=== PATIENT | male | born 1955 | race Caucasian/White ===

== ENCOUNTER 2016-03-30 14:53 | Emergency (ER) | payer OTHER ==
[2016-03-30 15:03] VITALS: BP 163/97; PULSE 92; TEMP 98.4; BMI 26.4
[2016-03-30] MEDS ORDERED: IBUPROFEN 600 MG TABLET (FP) PO ONE ×2 (15:31→15:33)
--- NOTE | 2016-03-30 15:32 | PDOC ---
History of Present Illness - General Chief Complaint: Injury Stated Complaint: SLIP/FALL, LEGS SWELLING Time Seen by Provider: 03/30/16 15:13 History Source: Patient Exam Limitations: No Limitations - History of Present Illness Initial Comments: 03/30/16 15:51 Chief complaint: Fall complaining of pain to right hand and bilateral knees History of present illness: Patient is a 61-year-old male with a history of insulin-dependent diabetes, hyperlipidemia and hypertension here today due to a fall. Patient reports that his had started to blow away and he grabbed it and fell breaking his fall with bilateral palms and knees. Patient denies any head injury. Patient is complaining of pain to his right palm R proximal thumb that is currently a 4 out of 10 and aching in nature. Patient denies any limitation of range of motion of right arm or hand or wrist or digits. Patient also has a superficial abrasion to right palm. Patient denies any pain of left palm. Patient complaining of pain to bilateral knees right being worse 8 when just sitting in 10 when walking and left knee is a 6 out of 10 when bending or walking. Patient has a superficial abrasion to his right knee. Patient has slight swelling noted to bilateral medial knees. Patient denies any numbness of his legs or any other issues. Patient is up-to-date with tetanus last had 2 years ago. Occurred: reports: just prior to arrival Severity: reports: mild (rt. hand proximal thumb ), moderate (left knee ), severe (right knee, ) Pain Location: reports: lower extremity (b/l knee pain, abrasion rt. knee, rt. palm ), upper extremity (rt/ hand proximal palmar thumb ) Method of Injury: Yes: fall Modifying Factors: improves with: None Loss of Consciousness: no loss of consciousness Associated Symptoms (Fall): trouble walking (limping slightly on rt. ) Past History - Past Medical History Allergies/Adverse Reactions: Allergies Allergy/AdvReac Type Severity Reaction Status Date / Time No Known Drug Allergies Allergy Verified 03/30/16 15:16 Home Medications: Ambulatory Orders Insulin Glargine,Hum.rec.anlog [Lantus (10mL VIAL) -] 12 units SQ AM 06/19/13 Enalapril Maleate [Vasotec] 10 mg PO DAILY 11/05/14 Insulin Lispro [Humalog] 12 unit SQ ASDIR 11/05/14 Glipizide 5 mg PO DAILY 07/07/15 Metformin HCl [Glucophage] 500 mg PO BID 07/07/15 Diabetes: Yes GI Disorders: Yes HTN: Yes Hypercholesterolemia: Yes Suicide Attempt (Hx): No - Surgical History Abdominal Surgery: Yes ("TWISTED INTESTINES") Appendectomy: Yes - Immunization History Td Vaccination: Yes Immunization Up to Date: Yes - Psycho/Social/Smoking Cessation Hx Anxiety: No Suicidal Ideation: No Smoking Status: No Smoking History: Never smoked Have you smoked in the past 12 months: No Number of Cigarettes Smoked Daily: 0 Information on smoking cessation initiated: No Hx Alcohol Use: No Drug/Substance Use Hx: No Substance Use Type: None Hx Substance Use Treatment: No Review of Systems - Review of Systems Able to Perform ROS?: Yes Constitutional: No: Symptoms Reported HEENTM: No: Symptoms Reported Respiratory: No: Symptoms reported Cardiac (ROS): No: Symptoms Reported ABD/GI: No: Symptoms Reported Musculoskeletal: Yes: Joint Pain (b/l knees , rt. proximal palmar thumb ), Joint Swelling (b/l knees medial aspect edema rt. greater than left ) Integumentary: Yes: Other (2 pea size abrasion rt. palm, rt. anterior knee quarter size superfical abrasion) Neurological: No: Symptoms reported *Physical Exam - Vital Signs Last Vital Signs Temp Pulse Resp BP Pulse Ox 98.4 F 92 H 18 163/97 100 03/30/16 15:01 03/30/16 15:01 03/30/16 15:01 03/30/16 15:01 03/30/16 15:01 - Physical Exam General Appearance: Yes: Appropriately Dressed Neck: negative: Tender, Lymphadenopathy (R), Lymphadenopathy (L), Rigidity, Tender lateral, Tender midline Respiratory/Chest: positive: Lungs Clear, Normal Breath Sounds. negative: Chest Tender, Respiratory Distress Cardiovascular: positive: Regular Rhythm, Regular Rate, S1, S2 Musculoskeletal: positive: Normal Inspection. negative: CVA Tenderness, CVA Tenderness (R), CVA Tenderness (L), Decreased Range of Motion, Muscle Spasm, Vertebral Tenderness Extremity: positive: Normal Capillary Refill, Normal Range of Motion (b/l knees , b/l wrist, hand and all digits b/l hands ), Tender (rt. b/l knees, rt.palmar proximal thumb ), Other (negative anterior posterior drawer b/l knee ) Integumentary: positive: Other (2pea size superifical abrasions rt. palm, rt. anterior knee superficial abrasion. ) Neurologic: positive: Alert, Normal Response, Motor Strength 5/5 (b/l arms and legs), Respond to painful stimul, Responsive. negative: Numbness, Sensory Deficit Procedures - Consent Consent obtained: From Patient - Splinting Splint Location: Right: Knee Favio Bandage: 6" Complications: No Progress: 03/30/16 18:20 - Additional Procedures Progress: 03/30/16 15:56 cleansed right hand abrasion which is 2 pea-sized area is noted with Betadine and normal saline 0.9% no foreign body noted area dried bacitracin applied with Band-Aid Cleanse abrasion to her right knee that is quarter size superficial with Betadine and normal saline 0.9% no foreign body noted area dried bacitracin applied with bandage Medical Decision Making - Medical Decision Making 03/30/16 15:54 Patient is a 61-year-old male with a history of insulin-dependent diabetes, hyperlipidemia and hypertension here today due to a fall. Patient reports that his had started to blow away and he grabbed it and fell breaking his fall with bilateral palms and knees. Patient denies any head injury. Patient is complaining of pain to his right palm R proximal thumb that is currently a 4 out of 10 and aching in nature. Patient denies any limitation of range of motion of right arm or hand or wrist or digits. Patient also has a superficial abrasion to right palm. Patient denies any pain of left palm. Patient complaining of pain to bilateral knees right being worse 8 when just sitting in 10 when walking and left knee is a 6 out of 10 when bending or walking. Patient has a superficial abrasion to his right knee. Patient has slight swelling noted to bilateral medial knees. Patient denies any numbness of his legs or any other issues. Patient is up-to-date with tetanus last had 2 years ago. With no head injury Right hand pain palmar aspect over her proximal thumb rule out fracture Abrasion to right palm Bilateral knee pain rule out fracture Abrasion to right knee Plan: X-ray bilateral knees No abnormality no fracture or dislocation noted per Dr. Rainey X-ray right hand no fracture noted mild arthritic changes noted Dr. Rainey Favio wrap 6 inch rt. knee Ibuprofen 600 mg by mouth now Rations to right hand and right knee cleanse with Betadine and normal saline no foreign bodies noted irrigated with normal saline 0.9% dried and small amount of bacitracin applied with band Follow Up with orthopedist for further evaluation 03/30/16 15:56 03/30/16 16:22 03/30/16 18:20 *DC/Admit/Observation/Transfer Diagnosis at time of Disposition: Abrasion Fall Qualifiers: Encounter type: initial encounter Qualified Code(s): W19.XXXA - Unspecified fall, initial encounter Contusion, knee Qualifiers: Encounter type: initial encounter Laterality: unspecified laterality Qualified Code(s): S80.00XA - Contusion of unspecified knee, initial encounter Contusion of hand, right Qualifiers: Encounter type: initial encounter Qualified Code(s): S60.221A - Contusion of right hand, initial encounter - Discharge Dispostion Disposition: HOME Condition at time of disposition: Stable - Referrals Referrals: Mookie Eli MD [Primary Care Provider] - Bobby Puente MD [Staff Physician] - - Patient Instructions Additional Instructions: Cleanse abrasions with antibacterial soap and water twice daily pat dry and apply bacitracin ointment and cover with Band-Aid when out a house let air out at night Elevate both legs and apply ice every one to 2 hours for 15 minutes each time while awake today and tomorrow Follow-up with orthopedist if pain continues and knees Return to emergency room if any redness around abrasions or discharge from abrasions or any fever Patient voiced understanding of discharge instructions and all questions were answered
[2016-03-30] MEDS ORDERED: BACITRACIN 30 GM TUBE TOPICAL OINTMENT ONE (15:33)
== END 2016-03-30 16:33 | disposition home or self-care (01) ==
LOC: JERFT 14:53
DX: S60.221A Contusion of right hand, initial encounter (principal); S80.02XA Contusion of left knee, initial encounter; S80.01XA Contusion of right knee, initial encounter; S60.511A Abrasion of right hand, initial encounter; S80.211A Abrasion, right knee, initial encounter; W18.39XA Other fall on same level, initial encounter; Y93.89 Activity, other specified; Y92.89 Other specified places as the place of occurrence of the external cause; I10 Essential (primary) hypertension; E11.9 Type 2 diabetes mellitus without complications; Z79.84 Long term (current) use of oral hypoglycemic drugs; Z79.4 Long term (current) use of insulin; E78.00 Pure hypercholesterolemia, unspecified
CPT/HCPCS: 73130-TC-RT; 73562-TC-LT; 73562-TC-RT; 99281-25

== ENCOUNTER 2017-07-23 15:56 | Emergency (ER) | payer OTHER ==
[2017-07-23 16:01] VITALS: BMI 32.8
--- NOTE | 2017-07-23 16:05 | PDOC ---
Rapid Medical Evaluation Time Seen by Provider: 07/23/17 15:56 Medical Evaluation: Allergies Allergy/AdvReac Type Severity Reaction Status Date / Time No Known Drug Allergies Allergy Verified 07/23/17 15:58 07/23/17 16:00 I have performed a brief in-person evaluation of this patient. The patient presents with a chief complaint of: CP. H/o HLD, HTN, DM, s/p neg stress test 3 years ago. States due for stress test on Wednesday given ongoing CP x several weeks. Pain worse today Pertinent physical exam findings: appears uncomfortable at triage, chest/lungs clear I have ordered the following:ekg/cxr/labs The patient will proceed to the ED for further evaluation. Discharge Disposition - Diagnosis Chest pain Qualifiers: Chest pain type: unspecified Qualified Code(s): R07.9 - Chest pain, unspecified - Referrals - Patient Instructions - Post Discharge Activity
[2017-07-23] MEDS: NITROGLYCERIN SUBLINGUAL 1/150 0.4 MG TAB SL PRN ×2 (16:29→17:36)
[2017-07-23 16:45] LABS: BASO % 1.2 % (0-2.0); EOS % 4.3 % (0-4.5); HEMATOCRIT 47.5 % (35.4-49); HEMOGLOBIN 15.3 GM/dL (11.7-16.9); MCHC 32.2 g/dl (32.0-35.9); MEAN CELL VOLUME 80.6 fl (80-96); MEAN PLT VOLUME 8.2 fl (7.5-11.1); MONO % 12.4 % (3.8-10.2); NEUT % 64.1 % (42.8-82.8); PLATELET COUNT 250 K/MM3 (134-434); RBC 5.89 M/mm3 (4.00-5.60); WHITE BLOOD COUNT 10.2 K/mm3 (4.0-10.0)
--- NOTE | 2017-07-23 17:06 | PDOC ---
History of Present Illness - General Chief Complaint: Chest Pain Stated Complaint: CHEST PAIN Time Seen by Provider: 07/23/17 15:56 - History of Present Illness Initial Comments: 07/23/17 17:00 "The patient is a 62 year old male with past medical history of HLD, HTN, DM, presents to the emergency department complaining of chest pain and headache for the past 2 wks. The patient reports that his pain started as midsternal/ epigastric burning sensation 2 weeks ago. It was initially intermittent, aggravated by walking. The pain radiates from his chest to his L shoulder. He also reports gradually worsening headache. Denies thunderclap. Denies neck pain. Denies N/V. Denies F/C. The patient reports his chest pain worsened this morning when the pain became constant, with no relief with Motrin. The patient went to [facility] earlier this week for chest pain, where he had bloodwork and a chest X-ray done that were reportedly normal. Pt denies any family history of cardiac disorder. Denies pain with deep breathing. Denies sob or wheezing. Denies fever, chills, cough or vertigo. Denies abdominal pain or back pain. Denies any numbness, tingling or loss of sensation. Denies vertigo or dizziness. Denies leg swelling or calf pain. Allergies: NKDA Surgical history: Abd surg: Appendectomy Social history: History of smoking. Social use of alcohol. Denies the use of recreational drugs. PCP: Mookie Eli MD " Past History - Past Medical History Allergies/Adverse Reactions: Allergies Allergy/AdvReac Type Severity Reaction Status Date / Time No Known Drug Allergies Allergy Verified 07/23/17 15:58 Home Medications: Ambulatory Orders Insulin Glargine,Hum.rec.anlog [Lantus (10mL VIAL) -] 14 units SQ BID 06/19/13 Enalapril Maleate [Vasotec] 10 mg PO DAILY 11/05/14 Insulin Lispro [Humalog] 12 unit SQ BID 11/05/14 Glipizide 5 mg PO DAILY 07/07/15 Metformin HCl [Glucophage] 500 mg PO AM 07/07/15 Pantoprazole Sodium [Protonix -] 40 mg PO DAILY 07/23/17 Pravastatin Sodium 10 mg PO HS 07/23/17 metFORMIN HCL [Metformin HCl] 1,000 mg PO HS 07/23/17 COPD: No Diabetes: Yes GI Disorders: Yes HTN: Yes Hypercholesterolemia: Yes - Surgical History Abdominal Surgery: Yes ("TWISTED INTESTINES") Appendectomy: Yes - Immunization History Td Vaccination: Yes Immunization Up to Date: Yes - Suicide/Smoking/Psychosocial Hx Smoking Status: No Smoking History: Never smoked Have you smoked in the past 12 months: No Number of Cigarettes Smoked Daily: 0 Hx Alcohol Use: No Drug/Substance Use Hx: No Substance Use Type: None Hx Substance Use Treatment: No Review of Systems - Review of Systems Comments:: 07/23/17 17:04 "GENERAL/CONSTITUTIONAL: No fever or chills. No weakness. HEAD, EYES, EARS, NOSE AND THROAT: No change in vision. No ear pain or discharge. No sore throat. CARDIOVASCULAR: (+) chest pain No shortness of breath. RESPIRATORY: No cough, wheezing, or hemoptysis. GASTROINTESTINAL: No nausea, vomiting, diarrhea or constipation. GENITOURINARY: No dysuria, frequency, or change in urination. MUSCULOSKELETAL: No joint or muscle swelling or pain. No neck or back pain. SKIN: No rash NEUROLOGIC: (+) headache, vertigo, loss of consciousness, or change in strength/ sensation. ENDOCRINE: No increased thirst. No abnormal weight change. HEMATOLOGIC/LYMPHATIC: No anemia, easy bleeding, or history of blood clots. ALLERGIC/IMMUNOLOGIC: No hives or skin allergy. " *Physical Exam - Vital Signs Last Vital Signs Temp Pulse Resp BP Pulse Ox 98.3 F 81 18 135/83 100 07/23/17 21:53 07/23/17 21:53 07/23/17 21:53 07/23/17 21:53 07/23/17 19:30 - Physical Exam Comments: 07/23/17 17:04 "GENERAL: Awake, alert, and fully oriented, in no acute distress. HEAD: No signs of trauma EYES: PERRLA, EOMI, sclera anicteric, conjunctiva clear ENT: Auricles normal inspection, hearing grossly normal, nares patent, oropharynx clear without exudates. Moist mucosa NECK: Nontender, no stepoffs, Normal ROM, supple, no lymphadenopathy, JVD, or masses LUNGS: Breath sounds equal, clear to auscultation bilaterally. No wheezes, and no crackles HEART: Regular rate and rhythm, normal S1 and S2, no murmurs, rubs or gallops ABDOMEN: Soft, nontender, normoactive bowel sounds. No guarding, no rebound. No masses EXTREMITIES: Normal range of motion, no edema. No clubbing or cyanosis. No cords, erythema, or tenderness NEUROLOGICAL: Cranial nerves II through XII intact. 5/5 strength and sensation in all extremities, Normal speech, normal gait, normal cerebellar function SKIN: Warm, Dry, normal turgor, no rashes or lesions noted. " Heart Score/ECG Review - History History: Moderately suspicious - Electrocardiogram EKG: Non specific repolarization disturbance - Age Age: 45-65 - Risk Factors Risk Factors Heart Score: Yes Hx Hypercholesterolemia, Yes Hx Hypertension, Yes Hx Diabetes Based on the list above the patient has:: >/=3 risk factors or Hx atherosclerotic disease - Troponin Troponin: </= normal limit - Score Heart Score - Total: 5 - ECG Impressions Comment:: 07/23/17 17:04 NSR, no GETACHEW/STDs, TWI in lateral leads, no prior to compare, intervals wnl, axis wnl, rate 83 ED Treatment Course - LABORATORY CBC & Chemistry Diagram: 07/23/17 16:35 07/23/17 16:35 - ADDITIONAL ORDERS Additional order review: Laboratory Results 07/23/17 07/23/17 07/23/17 16:56 16:56 16:35 PT with INR 12.20 INR 1.08 PTT (Actin FS) 31.7 Sodium 140 Potassium 4.6 Chloride 105 Carbon Dioxide 28 Anion Gap 7 L BUN 16 Creatinine 0.9 Creat Clearance w eGFR > 60 Random Glucose 139 H D Calcium 9.7 Total Bilirubin 0.4 D AST 97 H D ALT 52 D Alkaline Phosphatase 87 Creatine Kinase 1011 H Creatine Kinase Index 6.2 H* CK-MB (CK-2) 63.40 H Troponin I 12.20 H* D B-Natriuretic Peptide Total Protein 7.2 Albumin 3.9 Lipase 109 07/23/17 16:35 PT with INR INR PTT (Actin FS) Sodium Potassium Chloride Carbon Dioxide Anion Gap BUN Creatinine Creat Clearance w eGFR Random Glucose Calcium Total Bilirubin AST ALT Alkaline Phosphatase Creatine Kinase Creatine Kinase Index CK-MB (CK-2) Troponin I B-Natriuretic Peptide 295.01 H Total Protein Albumin Lipase 07/23/17 16:35 RBC 5.89 H MCV 80.6 MCHC 32.2 RDW 15.0 MPV 8.2 Neutrophils % 64.1 D Lymphocytes % 18.0 D Monocytes % 12.4 H Eosinophils % 4.3 Basophils % 1.2 - RADIOLOGY Radiology Studies Ordered: Category Date Time Status ABDOMEN/PELVIS CTA W/WO CONTR [CT] Stat CT Scan 07/23/17 17:06 Completed CHEST CTA [CT] Stat CT Scan 07/23/17 17:[address] WITHOUT CONTRAST [CT] Stat CT Scan 07/23/17 17:08 Completed - Medications Given in the ED: ED Medications Discontinued Medications Generic Name Dose Route Start Last Admin Trade Name Freq PRN Reason Stop Dose Admin Aspirin 325 mg 07/23/17 18:13 07/23/17 18:30 Asa - PO 07/23/17 18:14 325 mg ONCE ONE Administration Atorvastatin Calcium 80 mg 07/23/17 18:16 07/23/17 18:30 Lipitor - PO 07/23/17 18:17 80 mg ONCE ONE Administration Clopidogrel Bisulfate 300 mg 07/23/17 18:17 07/23/17 18:50 Plavix - PO 07/23/17 18:18 300 mg ONCE ONE Administration Morphine Sulfate 4 mg 07/23/17 20:28 07/23/17 20:38 Morphine Injection - IVPUSH 07/23/17 20:29 4 mg ONCE ONE Administration Medical Decision Making - Critical Care Time Total Critical Care Time (minutes): 60 Critical Care Statement: The care of this patient involved high complexity decision making to prevent further life threatening deterioration of the patient 's condition and/or to evaluate & treat vital organ system(s) failure or risk of failure. - Medical Decision Making 07/23/17 17:04 62 M with chest pain and headache. Chest pain concerning for ACS given exertional component. Will also need to r/o dissection given radiation from epigastric region to chest and elevated BP. Pt with no clinical s/s DVT, no PE risk factors. - Labs, serial trops - CXR - CTA chest/abd/pelvis - Nitro SL 07/23/17 18:28 Labs notable for trop >12 Pt with improved CP s/p SL nitro. CTA obtained, negative on my review Aspirin, plavix, heparin gtt, nitro gtt, statin ordered Dr. Philip consulted (covering for pt's imaging assistant Dr. Perla) 07/23/17 18:38 Dr. Philip recommending transfer to [facility] for interventional cards. Pt has been accepted to [facility] CCU by Dr. Webb. Pt consents to transfer. Pt reassessed and states that pain has improved significantly. 07/23/17 22:40 Spoke with cards fellow at [facility]. CCU bed is available, and they are arranging transportation. *DC/Admit/Observation/Transfer Diagnosis at time of Disposition: Chest pain Qualifiers: Chest pain type: unspecified Qualified Code(s): R07.9 - Chest pain, unspecified - Discharge Dispostion Disposition: TRANSFER ACUTE CARE/OTHER HOSP - Referrals Referrals: Mookie Eli MD [Primary Care Provider] - - Patient Instructions - Post Discharge Activity - Transfer to Acute Care Facility Receiving Facility: Other hosp. not listed Accepting Physician:: Tracey Transfer comment: 07/23/17 19:02 [facility] CCU - Attestations Physician Attestion: 07/23/17 19:02 I, Dr. Jose Valle MD, attest that this document has been prepared under my direction and personally reviewed by me in its entirety. I further attest, that it accurately reflects all work, treatment, procedures and medical decision -making performed by me.
[2017-07-23 17:17] LABS: ALBUMIN 3.9 g/dl (3.4-5.0); ANION GAP 7 (8-16); BILIRUBIN,TOTAL 0.4 mg/dL (0.2-1.0); BLOOD UREA NITROGEN 16 mg/dL (7-18); CALCIUM 9.7 mg/dL (8.5-10.1); CHLORIDE 105 mmol/L (98-107); CO2 28 mmol/L (21-32); CREATININE 0.9 mg/dL (0.7-1.3); GLUCOSE,RANDOM 139 mg/dL (74-106); POTASSIUM 4.6 mmol/L (3.5-5.1); SGOT/AST 97 U/L (15-37); SGPT/ALT 52 U/L (12-78); SODIUM 140 mmol/L (136-145); TOT PROT 7.2 g/dl (6.4-8.2)
[2017-07-23 17:28] LABS: ALK PHOS 87 U/L (45-117)
[2017-07-23 17:37] LABS: INR 1.08 (0.82-1.09); PROTHROMBIN TIME (PATIENT) 12.2 SEC (9.7-13.0)
[2017-07-23 17:39] LABS: ACTIVATED PTT 31.7 SECONDS (26.9-34.4)
[2017-07-23] MEDS ORDERED: NITROGLYCERIN 25MG/D5W 250ML 25 MG/250 ML ML IVPB SCH (18:00)
[2017-07-23] MEDS ORDERED: ASPIRIN 325 MG TABLET PO ONE (18:13)
[2017-07-23] MEDS ORDERED: HEPARIN NA (PORCINE) 5,000 UNITS/ML 1ML VIAL IVPUSH PRN ×2 (18:13)
[2017-07-23] MEDS ORDERED: HEPARIN - 25,000 UNIT in SODIUM CHLORIDE 495 ML IV SCH (18:15)
[2017-07-23] MEDS ORDERED: ATORVASTATIN CA 80 MG TABLET (FP) PO ONE (18:16)
[2017-07-23] MEDS ORDERED: CLOPIDOGREL BISULFATE 300 MG TABLET PO ONE (18:17)
[2017-07-23] MEDS ORDERED: ATORVASTATIN CA 80 MG TABLET (FP) ONE (18:20)
[2017-07-23] MEDS ORDERED: NITROGLYCERIN 25MG/D5W 250ML 25 MG/250 ML ML IVPB ONE (18:20)
[2017-07-23] MEDS ORDERED: ASPIRIN 325 MG TABLET ONE (18:20)
[2017-07-23] MEDS ORDERED: HEPARIN INFUSION - 25,000 UNITS/500 ML INFUS.BAG IVPB ONE (18:21)
[2017-07-23] MEDS ORDERED: CLOPIDOGREL BISULFATE 300 MG TABLET ONE (18:48)
[2017-07-23] MEDS ORDERED: HEPARIN NA (PORCINE) 5,000 UNITS/ML 1ML VIAL ONE (18:48)
[2017-07-23] MEDS ORDERED: morphine CARPU-JECT 4 MG/1 ML DISP.SYRIN IVPUSH ONE (20:28)
[2017-07-23] MEDS ORDERED: morphine SULFATE 4 MG/ML VIAL ONE (20:28)
[2017-07-23 21:54] VITALS: BP 135/83; PULSE 81; TEMP 98.3
--- NOTE | 2017-07-24 14:38 | EKG ---
Test Reason : Blood Pressure : / mmHG Vent. Rate : 083 BPM Atrial Rate : 083 BPM P-R Int : 128 ms QRS Dur : 090 ms QT Int : 362 ms P-R-T Axes : 037 024 035 degrees QTc Int : 425 ms NORMAL SINUS RHYTHM NONSPECIFIC T WAVE ABNORMALITY ABNORMAL ECG WHEN COMPARED WITH ECG OF 05-NOV-2014 17:11, NO SIGNIFICANT CHANGE WAS FOUND Confirmed by MD Sal Daniel ([id number]) on 07/24/2017 2:38:21 PM Referred By: Confirmed By:Amish Sal MD
--- NOTE | 2017-07-24 14:38 | EKG ---
Test Reason : Blood Pressure : / mmHG Vent. Rate : 080 BPM Atrial Rate : 080 BPM P-R Int : 126 ms QRS Dur : 090 ms QT Int : 374 ms P-R-T Axes : 025 030 011 degrees QTc Int : 431 ms NORMAL SINUS RHYTHM NONSPECIFIC T WAVE ABNORMALITY ABNORMAL ECG WHEN COMPARED WITH ECG OF 23-JUL-2017 16:03, NO SIGNIFICANT CHANGE WAS FOUND Confirmed by MD Sal Daniel ([id number]) on 07/24/2017 2:37:53 PM Referred By: Confirmed By:Amish Sal MD
== END 2017-07-24 00:43 | disposition short-term general hospital (02) ==
LOC: JER 15:56
PROC: 3E033GC Introduction of Other Therapeutic Substance into Peripheral Vein, Percutaneous Approach (ICD-10-PCS; principal; 2017-07-23)
DX: R07.9 Chest pain, unspecified (principal); E78.5 Hyperlipidemia, unspecified; I10 Essential (primary) hypertension; E11.9 Type 2 diabetes mellitus without complications
CPT/HCPCS: 36415; 70450-TC; 71045-TC-FY; 71275-TC; 74174-TC; 80053; 82550; 82553; 83690; 83880; 84484; 85025; 85610; 85730; 93005; 93010; 99285-25; J1644

== ENCOUNTER 2017-10-19 18:14 | Observation (INO) | payer OTHER ==
[2017-10-19] MEDS ORDERED: ASPIRIN 81 MG CHEWABLE TABLETS PO ONE (19:33)
--- NOTE | 2017-10-19 19:33 | PDOC ---
History of Present Illness - General Chief Complaint: Chest Pain Stated Complaint: CHEST PAIN Time Seen by Provider: 10/19/17 19:30 History Source: Patient Exam Limitations: No Limitations - History of Present Illness Initial Comments: 10/19/17 21:36 Amish 62 YOM with h/o DM2, HTN, HLD, CAD s/p CABG in 07/2017 at [employer] [place], on ASA and plavix, presenting with intermittent worsening left sided CP x 1 month. Patient describes the chest pain as sharp with an associated numbing and burning sensation, 6/10 in intensity, nonradiating, intermittent and lasting 20 minutes at a time that is exacerbated with movement. Patient states he has taken Tylenol in the past for his chest pain with mild relief. Patient also reports a near syncopal episode a/w dizziness two days ago. Patient denies loss of consciousness or head trauma. Patient denies any recent illnesses. The patient denies leg swelling, numbness/tingling/or weakness to the extremities, shortness of breath, headache, and dizziness. Denies fever, chills, nausea, vomit, diarrhea, and constipation. Denies dysuria, frequency, urgency, and hematuria. Allergies: NKA Past surgical history:CABG Social history: No reported alcohol, drug or cigarette use. PCP: Dr. Eli Quality Coordinator: Dr. Perla Past History - Past Medical History Allergies/Adverse Reactions: Allergies Allergy/AdvReac Type Severity Reaction Status Date / Time No Known Drug Allergies Allergy Verified 10/19/17 18:30 Home Medications: Ambulatory Orders Amlodipine Besylate [Norvasc -] 5 mg PO DAILY 10/19/17 Atorvastatin Ca [Lipitor] 80 mg PO HS 10/19/17 Clopidogrel Bisulfate [Plavix] 75 mg PO DAILY 10/19/17 Ferrous Sulfate [Feosol] 325 mg PO DAILY 10/19/17 Furosemide [Lasix] 20 mg PO DAILY 10/19/17 Metformin HCl [Metformin HCl ER] 1,000 mg PO DAILY 10/19/17 Metoprolol Tartrate 75 mg PO DAILY 10/19/17 Cardiac Disorders: Yes ([place] x 07/2017, Triple bypass 07/27/2017) COPD: No Diabetes: Yes GI Disorders: Yes HTN: Yes Hypercholesterolemia: Yes - Surgical History Abdominal Surgery: Yes ("TWISTED INTESTINES") Appendectomy: Yes - Immunization History Td Vaccination: Yes Immunization Up to Date: Yes - Suicide/Smoking/Psychosocial Hx Smoking Status: No Smoking History: Never smoked Have you smoked in the past 12 months: No Number of Cigarettes Smoked Daily: 0 Information on smoking cessation initiated: No Hx Alcohol Use: No Drug/Substance Use Hx: No Substance Use Type: None Hx Substance Use Treatment: No Review of Systems - Review of Systems Able to Perform ROS?: Yes Comments:: 10/19/17 21:36 ROS General Medical GENERAL/CONSTITUTIONAL: No fever or chills. No weakness. no sweats. HEAD, EYES, EARS, NOSE AND THROAT: No change in vision or hearing. No ear pain or discharge. No sore throat or mouth pain. No difficulty swallowing.. No congestion. CARDIOVASCULAR: (+) chest pain. No palpitations, syncope or edema. RESPIRATORY: +SOB; No cough, wheezing, or hemoptysis. GASTROINTESTINAL No nausea/vomiting. No diarrhea or constipation. No bloody stools. GENITOURINARY: No hematuria, dysuria, frequency, urgency or other changes. MUSCULOSKELETAL: No joint or muscle swelling or pain. No neck or back pain. SKIN: No rash or changes in skin color or lesions. NEUROLOGIC: No headache, vertigo, loss of consciousness, or change in strength/ sensation. No gait instability. +near syncope HEMATOLOGIC/LYMPHATIC: No anemia, easy bruising/bleeding, or history of blood clots. ALLERGIC/IMMUNOLOGIC: No allergies All other systems reviewed and negative, or as documented in HPI. *Physical Exam - Vital Signs Last Vital Signs Temp Pulse Resp BP Pulse Ox 98.0 F 76 18 132/84 100 10/19/17 18:26 10/19/17 21:16 10/19/17 21:16 10/19/17 21:16 10/19/17 21:16 - Physical Exam Comments: 10/19/17 21:36 General: Well appearing, awake and alert, NAD. HEENT: NCAT, PERRL, EOMI, clear conjunctiva, anicteric, moist mucus membranes, clear oropharynx, no oral lesions.. Neck: neck supple, FROM - no JVD. Resp: CTAB, normal and even respirations, no respiratory distress CVS: RRR, no murmurs, 2+ peripheral pulses throughout, no peripheral edema Chest: (+) midline sternotomy scar. (+) Reproducible left sided chest pain. Abdomen: soft, NTND, no peritoneal signs. +midline vertical abdominal scar. Back: nontender, normal inspection and ROM MSK: no edema, ESTRADA x4, ROM intact. No clubbing or cyanosis. normal bulk and tone. Neuro: alert, oriented appropriately; no focal neurologic deficits. Skin: warm and well perfused, cap refill <2 sec, normal color Heart Score/ECG Review - History History: Moderately suspicious - Electrocardiogram EKG: Non specific repolarization disturbance - Age Age: 45-65 - Risk Factors Risk Factors Heart Score: Yes Hx Hypercholesterolemia, Yes Hx Hypertension, Yes Hx Diabetes Based on the list above the patient has:: >/=3 risk factors or Hx atherosclerotic disease - Troponin Troponin: </= normal limit - Score Heart Score - Total: 5 - ECG Impressions Comment:: 10/19/17 20:52 EKG normal sinus rhythm, no interval abnormalities, narrow QRS, TWI in V4-6, I, AVL, II, III, AVF, changed from prior. Procedures - Bedside Ultrasound Bedside Ultrasound: Cardiac Remarks: 10/19/17 21:05 POCUS echo performed, indication includes chest pain/dyspnea. views obtained ( PSLA, PSS, A4, SX). Findings include normal EF, no pericardial effusion. Normal aortic root <4cm. RV<LV. Impression: no acute findings. ED Treatment Course - LABORATORY CBC & Chemistry Diagram: 10/19/17 19:45 10/19/17 19:45 - ADDITIONAL ORDERS Additional order review: Laboratory Results 10/19/17 10/19/17 19:45 19:45 PT with INR 13.30 H INR 1.18 H PTT (Actin FS) 30.3 Sodium 144 Potassium 4.1 Chloride 108 H Carbon Dioxide 28 Anion Gap 8 BUN 10 Creatinine 0.6 L Creat Clearance w eGFR > 60 Random Glucose 81 D Calcium 9.0 Magnesium 2.2 Total Bilirubin 0.4 AST 30 D ALT 76 D Alkaline Phosphatase 90 Troponin I < 0.02 D Total Protein 6.6 Albumin 3.7 10/19/17 19:45 RBC 5.00 MCV 78.4 L MCHC 32.9 RDW 16.6 H MPV 8.2 Neutrophils % 43.9 Lymphocytes % 32.7 D Monocytes % 13.4 H Eosinophils % 8.9 H Basophils % 1.1 - RADIOLOGY Radiology Studies Ordered: Category Date Time Status CHEST PA & LAT [RAD] Stat Radiology 10/19/17 19:33 Ordered - Medications Given in the ED: ED Medications Discontinued Medications Generic Name Dose Route Start Last Admin Trade Name Shereen PRN Reason Stop Dose Admin Aspirin 324 mg 10/19/17 19:33 10/19/17 19:46 Asa - PO 10/19/17 19:34 324 mg ONCE ONE Administration Nitroglycerin 0.4 mg 10/19/17 20:51 10/19/17 20:56 Nitrostat - SL 10/19/17 20:52 0.4 mg ONCE ONE Administration Medical Decision Making - Medical Decision Making 10/19/17 19:33 A portion of this note was documented by scribe services under my direction. I have reviewed the details of the note, within reason, and agree with the documentation with the following case summary and management plan written by me. MDM: Amish 62 YOM with h/o DM2, HTN, HLD, CAD s/p CABG in 07/2017 at [employer], on ASA and plavix, presenting with left sided CP x 1 month. +reproducible, no exacerbating or alleviating factors, nonexertional and nonradiating. ~2 days ago , episode of near syncope a/w dizziness, no head trauma. Denies recent illnesses. Personal history of recent CABG. Quality Coordinator Dr. Perla. Seen 07/23/17 for CP, neg CTA for dissection. Transferred to [facility]U for intervention DDx chest pain: ACS, [place], PE, dissection, PUD, esophageal spasm, GERD, gastritis, costochondritis, pneumonia, pleurisy, pericarditis/myocarditis. dehydration, electrolyte/metabolic derangements. syncope. Vital signs reviewed, wnl. HD appropriate. Medical Plan: CBC, CMP, trop, ECG, CXR Prior notes reviewed, including admissions, discharges and consultations. laboratory results and imaging reviewed, basic labs and lytes wnl, negative troponin x1. EKG normal sinus rhythm, no interval abnormalities, narrow QRS, TWI in V4-6, I, AVL, II, III, AVF, changed from prior. HEART score 5, moderate probability of MACE ~14-16% Interventions: ASA, full dosing, nitro SL trial with symptom relief. spoke with Dr. Perla, cards cs. agree with obs admit and telemetry Dispo: Admit for chest pain eval, r/o ACS, serial trops and EKG, tele monitoring.. Discussed results and management plan with pt and family member at bedside, agree with impression and plan 10/19/17 21:05 *DC/Admit/Observation/Transfer Diagnosis at time of Disposition: Chest pain - Discharge Dispostion Condition at time of disposition: Good Decision to Admit order: Yes Decision to Admit order Date/Time: Decision to Admit Order Category Date Time Status Decision to Admit to Hospital Routine Admission 10/19/17 21:04 Ordered - Referrals - Patient Instructions - Post Discharge Activity
[2017-10-19] MEDS ORDERED: ASPIRIN 81 MG CHEWABLE TABLETS ONE (19:44)
[2017-10-19 20:05] LABS: BASO % 1.1 % (0-2.0); EOS % 8.9 % (0-4.5); HEMATOCRIT 39.2 % (35.4-49); HEMOGLOBIN 12.9 GM/dL (11.7-16.9); LYMPH % 32.7 % (8-40); MCH 25.8 pg (25.7-33.7); MCHC 32.9 g/dl (32.0-35.9); MEAN CELL VOLUME 78.4 fl (80-96); MEAN PLT VOLUME 8.2 fl (7.5-11.1); MONO % 13.4 % (3.8-10.2); NEUT % 43.9 % (42.8-82.8); PLATELET COUNT 228 K/MM3 (134-434); RDW 16.6 % (11.9-15.9); WHITE BLOOD COUNT 7.2 K/mm3 (4.0-10.0)
[2017-10-19 20:20] LABS: INR 1.18 (0.83-1.09); PROTHROMBIN TIME (PATIENT) 13.3 SEC (9.7-13.0)
[2017-10-19 20:23] LABS: ACTIVATED PTT 30.3 SECONDS (25.2-36.5)
[2017-10-19 20:29] LABS: ALBUMIN 3.7 g/dl (3.4-5.0); ANION GAP 8 MMOL/L (8-16); BILIRUBIN,TOTAL 0.4 mg/dL (0.2-1.0); BLOOD UREA NITROGEN 10 mg/dL (7-18); CHLORIDE 108 mmol/L (98-107); CO2 28 mmol/L (21-32); CREATININE 0.6 mg/dL (0.7-1.3); GLUCOSE,RANDOM 81 mg/dL (74-106); MAGNESIUM 2.2 mg/dL (1.8-2.4); POTASSIUM 4.1 mmol/L (3.5-5.1); SGOT/AST 30 U/L (15-37); SGPT/ALT 76 U/L (12-78); SODIUM 144 mmol/L (136-145); TOT PROT 6.6 g/dl (6.4-8.2)
[2017-10-19 20:32] LABS: ALK PHOS 90 U/L (45-117)
[2017-10-19] MEDS ORDERED: NITROGLYCERIN SUBLINGUAL 1/150 0.4 MG TAB SL ONE (20:51)
[2017-10-19] MEDS ORDERED: INSULIN (LEVEMIR) 100 UNITS/ML UNITS SQ ONE (22:34)
[2017-10-20] MEDS ORDERED: guaiFENesin/CODEINE 5 ML UNIT-DOSE CUPS PO ONE (00:06)
--- NOTE | 2017-10-20 00:51 | HP ---
CHIEF COMPLAINT: Chest pain PCP: Dr. Eli HISTORY OF PRESENT ILLNESS: The patient is a 62 yo m w/ PMH DM, HTN, HLD, CAD s/p CABGx3 07/2017 who comes into the ED c/o a 1 month history of gradually worsening chest pain. The patient states that since his CABG approx. one month ago, he has experienced a sharp, nonradiating chest pain in the area of his left pectoral muscle extending from the left sternal border straight across to his left nipple. The pain is reproducible with palpation, exacerbated by movement, coughing or deep breathing and alleviated by lying still. The pain comes and goes and is also associated with numbness in the same area. The patient has tried to take both ibuprofen and tylenol for this pain with minimal relief. The pain has been getting progressively worse and has started to interfere with the patient's sleep, which prompted him to seek medical attention. Patient denies SOB, fevers, chills, abdominal pain, dysuria. The patient states that this pain is different than anginal pain he has felt in the past. ER course was notable for: (1) EKG showing t wave inversions compared to EKG from before CABG (2) trop negative x1 (3) ASA 325, nitro .4mg Recent Travel: none PAST MEDICAL HISTORY: see HPI PAST SURGICAL HISTORY: CABGx3 07/2017 at [facility] Appendectomy Abdominal surgery for "twisted intestines" Social History: Smoking: denies Alcohol: denies Drugs: denies Family History: non-contributory Allergies No Known Drug Allergies Allergy (Verified 10/19/17 18:30) HOME MEDICATIONS: Home Medications Medication Instructions Recorded Amlodipine Besylate [Norvasc -] 5 mg PO DAILY 10/19/17 Atorvastatin Ca [Lipitor] 80 mg PO HS 10/19/17 Clopidogrel Bisulfate [Plavix] 75 mg PO DAILY 10/19/17 Ferrous Sulfate [Feosol] 325 mg PO DAILY 10/19/17 Furosemide [Lasix] 20 mg PO DAILY 10/19/17 Insulin Glargine,Hum.rec.anlog 28 unit SQ HS 10/19/17 [Lantus] Metformin HCl [Metformin HCl ER] 1,000 mg PO DAILY 10/19/17 Metoprolol Tartrate 75 mg PO DAILY 10/19/17 REVIEW OF SYSTEMS CONSTITUTIONAL: Absent: fever, chills, diaphoresis, generalized weakness, malaise, loss of appetite, weight change HEENT: Absent: rhinorrhea, nasal congestion, throat pain, throat swelling, difficulty swallowing, mouth swelling, ear pain, eye pain, visual changes CARDIOVASCULAR: Absent: syncope, palpitations, irregular heart rate, lightheadedness, peripheral edema RESPIRATORY: Absent: cough, shortness of breath, dyspnea with exertion, orthopnea, wheezing, stridor, hemoptysis GASTROINTESTINAL: Absent: abdominal pain, abdominal distension, nausea, vomiting, diarrhea, constipation, melena, hematochezia GENITOURINARY: Absent: dysuria, frequency, urgency, hesitancy, hematuria, flank pain, genital pain MUSCULOSKELETAL: Absent: myalgia, arthralgia, joint swelling, back pain, neck pain SKIN: Absent: rash, itching, pallor HEMATOLOGIC/IMMUNOLOGIC: Absent: easy bleeding, easy bruising, lymphadenopathy, frequent infections ENDOCRINE: Absent: unexplained weight gain, unexplained weight loss, heat intolerance, cold intolerance NEUROLOGIC: Absent: headache, focal weakness or paresthesias, dizziness, unsteady gait, seizure, mental status changes, bladder or bowel incontinence PSYCHIATRIC: Absent: anxiety, depression, suicidal or homicidal ideation, hallucinations. PHYSICAL EXAMINATION Vital Signs - 24 hr 10/19/17 10/19/17 10/19/17 18:26 20:06 21:16 Temperature 98.0 F Pulse Rate 75 Pulse Rate [ 76 Right Apical] Respiratory 16 18 Rate Blood Pressure 130/70 Blood Pressure 132/84 [Right Arm] O2 Sat by Pulse 100 100 100 Oximetry (%) GENERAL: Awake, alert, and fully oriented, in no acute distress. HEAD: Normal with no signs of trauma. EYES: Pupils equal, round and reactive to light, extraocular movements intact, sclera anicteric, conjunctiva clear. No lid lag. EARS, NOSE, THROAT: oropharynx clear without exudates. Moist mucous membranes. NECK: Normal range of motion, supple without lymphadenopathy, JVD, or masses. LUNGS: Breath sounds equal, clear to auscultation bilaterally. No wheezes, and no crackles. No accessory muscle use. HEART: Regular rate and rhythm, normal S1 and S2 without murmur, rub or gallop. There is tenderness to palpation along the belly of the left pectoral muscle. No fluctuance or masses felt. The left pectoral muscle appears swollen compared to the right. No discharge from the nipple seen. ABDOMEN: Soft, nontender, not distended, normoactive bowel sounds, no guarding, no rebound, no masses. No hepatomegaly or splenomegaly. LOWER EXTREMITIES: 2+ pulses, warm, well-perfused. No calf tenderness. No peripheral edema. NEUROLOGICAL: Cranial nerves II-X intact. Normal speech. PSYCHIATRIC: Cooperative. Good eye contact. Appropriate mood and affect. SKIN: Warm, dry, normal turgor, no rashes or lesions noted, normal capillary refill. Laboratory Results - last 24 hr 10/19/17 10/19/17 10/19/17 19:45 19:45 19:45 WBC 7.2 RBC 5.00 Hgb 12.9 Hct 39.2 MCV 78.4 L MCH 25.8 MCHC 32.9 RDW 16.6 H Plt Count 228 MPV 8.2 Absolute Neuts (auto) 3.2 Neutrophils % 43.9 Lymphocytes % 32.7 D Monocytes % 13.4 H Eosinophils % 8.9 H Basophils % 1.1 Nucleated RBC % 0 PT with INR 13.30 H INR 1.18 H PTT (Actin FS) 30.3 Sodium 144 Potassium 4.1 Chloride 108 H Carbon Dioxide 28 Anion Gap 8 BUN 10 Creatinine 0.6 L Creat Clearance w eGFR > 60 Random Glucose 81 D Calcium 9.0 Magnesium 2.2 Total Bilirubin 0.4 AST 30 D ALT 76 D Alkaline Phosphatase 90 Troponin I < 0.02 D Total Protein 6.6 Albumin 3.7 ASSESSMENT/PLAN: The patient is a 62 yo m w/ PMH HTN, DM, HLD, CAD s/p CABGx3 07/2017 who comes into the ED c/o a 1 month hx gradually worsening left sided CP. #Left sided CP likely 2/2 squelae following cardiac surgery, r/o ACS -EKG w/ t wave changes likely 2/2 recent CABG -trop negative x1 -cardiology consult: Dr. Perla -US left chest r/o collection in area of tenderness -s/p ASA 325, nitro in the ED -Percocet Q4H PRN pain #FEN -no fluids indicated -lytes WNL -diabetic diet #Dispo -Admit tele obs r/o ACS Visit type - Emergency Visit Emergency Visit: Yes ED Registration Date: 10/19/17 Care time: The patient presented to the Emergency Department on the above date and was hospitalized for further evaluation of their emergent condition. - New Patient This patient is new to me today: Yes Date on this admission: 10/20/17 - Critical Care Critical Care patient: No Hospitalist Screening - Colonoscopy Questionnaire Colonoscopy Questionnaire: Colonoscopy Questionnaire - Patient: 50 - 75 years old and never had a screening colonoscopy: Unknown History of colon or rectal polyps, or CA: Unknown History of IBD, Crohn's disease or UC: Unknown History of abdominal radiation therapy as a child: Unknown - Relative: 1 with colon or rectal CA, or polyps at age 60 or younger: Unknown Colon or rectal CA diagnosed at age 45 or younger: Unknown Multiple relatives with colon or rectal CA: Unknown - Outcome: Screening Result: Negative Screen
--- NOTE | 2017-10-20 02:04 | PN ---
Teaching Attending Note Name of Resident: Kristopher Garcia ATTENDING PHYSICIAN STATEMENT I saw and evaluated the patient. Chart, data, imaging reviewed. I reviewed the resident's note and discussed the case with the resident. I agree with the resident's findings and plan as documented. SUBJECTIVE: 62 YOM with h/o DM2, HTN, HLD, CAD s/p CABG in 07/2017 at [facility], on ASA and plavix, presenting with intermittent left chest pain which started soon after his CABG, nonradiating, reproducible, worse with compression, worse with coughing. Pain is not worsened with exertion. EKG in ER with no acute ischemic changes, trop neg x1. OBJECTIVE: Last Vital Signs Temp Pulse Resp BP Pulse Ox 98.0 F 76 18 132/84 100 10/19/17 18:26 10/19/17 21:16 10/19/17 21:16 10/19/17 21:16 10/19/17 21:16 general- nontoxic, appears comfortable heent- at, nc, moist oral mucosa neck - supple cv - s1+S2+rrr chest - left anterior chest tenderness on palpation, midline sternal scar - appears well healed, lungs cta b/l abdomen- soft, nt, midline scar ext- no pedal edema Abnormal Lab Results 10/19/17 10/19/17 10/19/17 19:45 19:45 19:45 MCV 78.4 L RDW 16.6 H Monocytes % 13.4 H Eosinophils % 8.9 H PT with INR 13.30 H INR 1.18 H Chloride 108 H Creatinine 0.6 L HEART score- 4 ASSESSMENT AND PLAN: 62yo man with atypical chest pain post CABG procedure July 2017. Chest pain quality does not seem cardiac in nature, but may be from post-op inflammation. Should r/o post op fluid collections. Trop neg x1 and EKG with poor R wave progression and nonspecific T wave inversions. -tele-observation -trend troponins -cardiology consult -nitroglycerin sl prn -U/S of left chest to check for fluid collection -oxycodone PO prn for pain control -restart home meds -heparin sc for dvt ppx
[2017-10-20 06:07] VITALS: BMI 26.9
[2017-10-20] MEDS: INSULIN SLIDING SCALE (NOVOLOG) 1 VIAL SQ SCH ×2 (06:20→13:15)
[2017-10-20] MEDS: HEPARIN NA (PORCINE) 5,000 UNITS/ML 1ML VIAL SQ SCH ×2 (06:20→14:11)
[2017-10-20] MEDS: oxyCODONE HCL 5 MG TABLET PO PRN ×2 (08:27→15:01)
[2017-10-20] MEDS: ACETAMINOPHEN 325 MG TABLET (FP) PO PRN ×2 (08:30→15:02)
[2017-10-20] MEDS ORDERED: FUROSEMIDE 20 MG TABLET (FP) PO SCH (10:00)
[2017-10-20] MEDS ORDERED: ENOXAPARIN NA (PORCINE) 40 MG/0.4 ML DISP.SYRIN SQ SCH (10:00)
[2017-10-20] MEDS ORDERED: amLODIPine BESYLATE 5 MG TABLET (FP) PO SCH (10:00)
[2017-10-20] MEDS ORDERED: METOPROLOL TARTRATE 50 MG TABLET (FP) PO SCH ×2 (10:00→22:00)
[2017-10-20] MEDS ORDERED: CLOPIDOGREL BISULFATE 75 MG TABLET (FP) PO SCH (10:00)
--- NOTE | 2017-10-20 10:10 | CON.CARD ---
Consult Consult Specialty:: Cardiology Referred by:: Car Reason for Consultation:: chest pain post CABG - History of Present Illness Chief Complaint: chest pain History of Present Illness: 62M h/o DM, HTN, HLD, CAD s/p CABGx3 07/2017 p/w one month of worsening chest pain. Sharp, not radiating on left sternal border to L nipple, worse with moving and palpation, coughing, deep breaths. Not relieved with OTC tylenol. No dyspnea, edema, orthopnea, PND. Received aspirin 325, trop neg x 2. This morning pain is stable, worse with deep breaths and turning over in bed. Not exertional. Initially after CABG in 07/2017 he was doing well but feels that the current pain has been ongoing for a month. He takes occasional tylenol and tries to only take this when the pain is bad. - Past Medical History Cardio/Vascular: Yes: HTN, Hyperlipdemia Gastrointestinal: Yes: Peptic Ulcer Disease (gastric ulcer due to aspirin and hpylori treated and eradicated and ulcer healed on rpt egd), Other (twisted bowel requiring surgery but findings were resolved; appendicitis) Musculoskeletal: Yes: Other (chronic mid back pain for months) Endocrine: Yes: Diabetes Mellitus (for 15-20 years, on insulin for 2 years) - Past Surgical History Past Surgical History: Yes: Appendectomy - Alcohol/Substance Use Hx Alcohol Use: No - Smoking History Smoking history: Never smoked Have you smoked in the past 12 months: No Aproximately how many cigarettes per day: 0 - Social History Usual Living Arrangement: With Spouse ADL: Independent Occupation: light maintenance Home Medications - Allergies Allergies/Adverse Reactions: Allergies Allergy/AdvReac Type Severity Reaction Status Date / Time No Known Drug Allergies Allergy Verified 10/19/17 18:30 - Home Medications Home Medications: Ambulatory Orders Amlodipine Besylate [Norvasc -] 5 mg PO DAILY 10/19/17 Atorvastatin Ca [Lipitor] 80 mg PO HS 10/19/17 Clopidogrel Bisulfate [Plavix] 75 mg PO DAILY 10/19/17 Ferrous Sulfate [Feosol] 325 mg PO DAILY 10/19/17 Furosemide [Lasix] 20 mg PO DAILY 10/19/17 Insulin Glargine,Hum.rec.anlog [Lantus] 28 unit SQ HS 10/19/17 Metformin HCl [Metformin HCl ER] 500 mg PO BID 10/19/17 Metoprolol Tartrate 75 mg PO BID 10/19/17 Family Disease History - Family Disease History Family History: Unremarkable Family Disease History: Diabetes: Father, Mother (htn, chol) Review of Systems - Review of Systems Constitutional: reports: No Symptoms Eyes: reports: No Symptoms HENT: reports: No Symptoms Neck: reports: No Symptoms Cardiovascular: reports: Chest Pain Respiratory: reports: No Symptoms Gastrointestinal: reports: No Symptoms Genitourinary: reports: No Symptoms Musculoskeletal: reports: No Symptoms Integumentary: reports: No Symptoms Neurological: reports: No Symptoms Endocrine: reports: No Symptoms Hematology/Lymphatic: reports: No Symptoms Psychiatric: reports: No Symptoms Vital Signs: Vital Signs Temperature 97.8 F 10/20/17 06:00 Pulse Rate 68 10/20/17 06:00 Respiratory Rate 20 10/20/17 09:00 Blood Pressure 127/79 10/20/17 06:00 O2 Sat by Pulse Oximetry (%) 99 10/20/17 09:00 Constitutional: Yes: Well Nourished, No Distress, Calm Eyes: Yes: Conjunctiva Clear, EOM Intact HENT: Yes: Atraumatic, Normocephalic Neck: Yes: Supple, Trachea Midline Respiratory: Yes: Regular, CTA Bilaterally Gastrointestinal: Yes: Normal Bowel Sounds, Soft Renal/: Yes: WNL Cardiovascular: Yes: Other (sternotomy scar well healed, tenderness to palpation without skin changes on L sternal border and close to L nipple) JVD: No Heart Sounds: Yes: S1, S2 Musculoskeletal: Yes: WNL Extremities: Yes: WNL Edema: No Peripheral Pulses: 2+ Left Doralis Pedis, 2+ Right Dorsalis Pedis Integumentary: Yes: WNL Neurological: Yes: Alert, Oriented ...Motor Strength: WNL Psychiatric: Yes: Alert, Oriented - Other Data Labs, Other Data: CBC, BMP 10/19/17 19:45 10/19/17 19:45 INR, PTT INR 1.18 (0.83-1.09) H 10/19/17 19:45 Troponin, BNP 10/19/17 10/20/17 19:45 04:33 Troponin I < 0.02 D < 0.02 Troponin, BNP 10/19/17 10/20/17 19:45 04:33 Troponin I < 0.02 D < 0.02 Assessment/Plan EKG sinus rhythm, nonspecific T wave abnormality similar to prior 62M h/o DM, HTN, HLD, CAD s/p CABGx3 07/2017 p/w one month of worsening chest pain Chest pain - likely post CABG, sternotomy pain - trop neg x 2, atypical chest pain more c/w post sternotomy pain, unlikely ACS - pain control per primary team, patient takes tylenol - ultrasound of chest ordered overnight and is pending CAD s/p CABG - cont plavix, statin, bb - unlikely ACS HTN -controlled on amlodipine, lasix, metoprolol HLD - continue statin DM - manage per primary team
--- NOTE | 2017-10-20 12:35 | EKG ---
Test Reason : Blood Pressure : / mmHG Vent. Rate : 068 BPM Atrial Rate : 068 BPM P-R Int : 144 ms QRS Dur : 092 ms QT Int : 388 ms P-R-T Axes : 033 020 237 degrees QTc Int : 412 ms NORMAL SINUS RHYTHM T WAVE ABNORMALITY, CONSIDER INFEROLATERAL ISCHEMIA ABNORMAL ECG WHEN COMPARED WITH ECG OF 23-JUL-2017 18:04, NO SIGNIFICANT CHANGE WAS FOUND Confirmed by HEMANTH PARKS, JASMYNE ([id number]) on 10/20/2017 12:34:57 PM Referred By: Confirmed By:JASMYNE SAXENA MD
--- NOTE | 2017-10-20 14:31 | DS ---
Physical Examination Vital Signs: Vital Signs Temperature 36.5 C 10/20/17 09:00 Pulse Rate 72 10/20/17 09:00 Respiratory Rate 18 10/20/17 09:00 Blood Pressure 130/75 10/20/17 09:00 O2 Sat by Pulse Oximetry (%) 99 10/20/17 09:00 Constitutional: Yes: Well Nourished, No Distress, Calm Cardiovascular: Yes: Regular Rate and Rhythm. No: Gallop, Murmur, Rub Respiratory: Yes: Regular, CTA Bilaterally. No: Rales, Rhonchi, Wheezes Gastrointestinal: Yes: Normal Bowel Sounds, Soft. No: Distention, Tenderness Extremities: Yes: WNL Edema: No Labs: CBC, BMP 10/19/17 19:45 10/19/17 19:45 Discharge Summary Reason For Visit: CHEST PAIN Current Active Problems Chest pain (Acute) Hospital Course: Mr Wellington is a very pleasant 62 year old male who comes in with one month of atypical chest pain after CABG. He presented to the ED and was admitted to telemetry under observation. His EKG was unchanged and had no unusual events on telemetry. Cardiac enzymes sent and negative. Soft tissue chest ultrasound performed and negative. Case discussed with cardiology and cleared. He is safe for discharge home, to follow up with Dr Eli and Dr Perla. Condition: Good - Instructions Diet, Activity, Other Instructions: resume previous diet and activity Referrals: Mookie Eli MD [Primary Care Provider] - 1 Week Norman Perla MD [Staff Physician] - Disposition: HOME - Home Medications Comprehensive Discharge Medication List: Ambulatory Orders Amlodipine Besylate [Norvasc -] 5 mg PO DAILY 10/19/17 Atorvastatin Ca [Lipitor] 80 mg PO HS 10/19/17 Clopidogrel Bisulfate [Plavix] 75 mg PO DAILY 10/19/17 Ferrous Sulfate [Feosol] 325 mg PO DAILY 10/19/17 Furosemide [Lasix] 20 mg PO DAILY 10/19/17 Insulin Glargine,Hum.rec.anlog [Lantus] 28 unit SQ HS 10/19/17 Metformin HCl [Metformin HCl ER] 500 mg PO BID 10/19/17 Metoprolol Tartrate 75 mg PO BID 10/19/17
[2017-10-20 15:09] VITALS: BP 120/73; PULSE 68; TEMP 97.9
[2017-10-20] MEDS ORDERED: ATORVASTATIN CA 80 MG TABLET (FP) PO SCH (22:00)
== END 2017-10-20 15:45 | disposition home or self-care (01) ==
LOC: JER 18:14 → JERBED 21:04 → J4W 10-20 03:53
PROVIDERS: ADMIT Internal Medicine; ATTEND Internal Medicine
PROC: 3E033GC Introduction of Other Therapeutic Substance into Peripheral Vein, Percutaneous Approach (ICD-10-PCS; principal; 2017-10-19)
DX: R07.9 Chest pain, unspecified (principal); I10 Essential (primary) hypertension; E78.5 Hyperlipidemia, unspecified; E11.9 Type 2 diabetes mellitus without complications; I25.10 Atherosclerotic heart disease of native coronary artery without angina pectoris; Z95.1 Presence of aortocoronary bypass graft; Z79.82 Long term (current) use of aspirin; Z79.84 Long term (current) use of oral hypoglycemic drugs
CPT/HCPCS: 36415; 71046-TC-FY; 76604; 80053; 82550; 82962; 83735; 84484; 85025; 85610; 85730; 93005; 93010; 99284-25; G0378; J1644

== ENCOUNTER 2019-01-10 20:58 | Emergency (ER) | payer OTHER ==
--- NOTE | 2019-01-10 21:19 | PDOC ---
Rapid Medical Evaluation Chief Complaint: Edema Time Seen by Provider: 01/10/19 21:18 Medical Evaluation: Allergies Allergy/AdvReac Type Severity Reaction Status Date / Time No Known Drug Allergies Allergy Verified 10/19/17 18:30 01/10/19 21:18 I have performed a brief in-person evaluation of this patient. The patient presents with a chief complaint of:bilateral leg swelling on and off x 2 months. Pertinent physical exam findings: + 3-4 edema to bilateral feet to mid [place]. NO CP, No SOB I have ordered the following: CBC, CMP, BNP, The patient will proceed to the ED for further evaluation. 01/10/19 21:21 01/10/19 21:24 Discharge Disposition - Diagnosis Edema - Referrals - Patient Instructions - Post Discharge Activity
[2019-01-10 21:29] VITALS: TEMP 97.8; BMI 23.3
[2019-01-10 21:41] LABS: BASO % 2.5 % (0-2.0); EOS % 4.7 % (0-4.5); HEMATOCRIT 41.5 % (35.4-49); HEMOGLOBIN 13.3 GM/dL (11.7-16.9); LYMPH % 26.1 % (8-40); MCH 26.1 pg (25.7-33.7); MCHC 32.1 g/dl (32.0-35.9); MEAN CELL VOLUME 81.3 fl (80-96); MEAN PLT VOLUME 8.3 fl (7.5-11.1); MONO % 14.2 % (3.8-10.2); NEUT % 52.5 % (42.8-82.8); PLATELET COUNT 248 K/MM3 (134-434); RDW 14.8 % (11.9-15.9)
[2019-01-10 22:14] LABS: ALBUMIN 3.9 g/dl (3.4-5.0); BILIRUBIN,TOTAL 0.4 mg/dL (0.2-1); BLOOD UREA NITROGEN 17.4 mg/dL (7-18); N-TERMINAL BNP 462.2 pg/ml (5-125); POTASSIUM 4.7 mmol/L (3.5-5.1); TOT PROT 6.7 g/dl (6.4-8.2)
--- NOTE | 2019-01-10 23:30 | PDOC ---
History of Present Illness - General Chief Complaint: Edema Stated Complaint: FEET SWOLLEN Time Seen by Provider: 01/10/19 21:18 - History of Present Illness Initial Comments: HPI: 62yo M with PMH of DM2, HTN, HLD, CAD s/p CABG in 07/2017 at [place], on ASA and plavix, presenting with intermittent leg swelling x 2 weeks. Yesterday his left leg was more swollen, and today his right leg became more swollen, such that his legs appear the same size now. Reports compliance with medications including lasix 20mg. Not on a fluid-restricted diet. Denies chest pain or shortness of breath. Had an ECHO performed one week ago but does not yet know the results. 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 Patient states he flew 18 hours to and from [place] 11/14-11/26. No hemoptysis, no recent surgical history, no hormone use, no history of DVT or PE. Denies fever or chills. PCP: Dr. Eli Engineer Process: Dr. Perla ROS: Constitutional: no fever, no chills HEENT: no throat pain, no dysphagia Cardiovascular: no chest pain, no palpitations Respiratory: no cough, no shortness of breath Gastrointestinal: no abdominal pain, no nausea Genitourinary: no dysuria, no hematuria Musculoskeletal: +leg swelling, +leg pain Skin: no rash, no itching Neurologic: no headache, no weakness PE: General: Awake, alert, and fully oriented, in no acute distress Head: No signs of trauma Eyes: EOMI, sclera anicteric ENT: Moist mucus membranes Neck: Normal ROM, supple Lungs: Lungs clear, Normal breath sounds Cardio: Regular rhythm, S1 and S2 present Abdomen: Soft, nontender. Extremities: Normal range of motion, Distal pulses present, 3+ pitting edema in BLE SKIN: Warm, Dry, normal turgor Neurologic: Cranial nerves II through XII grossly intact. Normal speech ED Course/MDM: DDX including but not limited to CHF exacerbation, venous stasis, PVD, Lymphedema Labs, EKG, CXR Duplex of BLE 01/10/19 23:30 CBC WBC 8.0 K/mm3 (4.0-10.0) 01/10/19 21:32 RBC 5.10 M/mm3 (4.00-5.60) 01/10/19 21:32 Hgb 13.3 GM/dL (11.7-16.9) 01/10/19 21:32 Hct 41.5 % (35.4-49) 01/10/19 21:32 MCV 81.3 fl (80-96) 01/10/19 21:32 MCH 26.1 pg (25.7-33.7) 01/10/19 21:32 MCHC 32.1 g/dl (32.0-35.9) 01/10/19 21:32 RDW 14.8 % (11.9-15.9) 01/10/19 21:32 Plt Count 248 K/MM3 (134-434) 01/10/19 21:32 MPV 8.3 fl (7.5-11.1) 01/10/19 21:32 Absolute Neuts (auto) 4.2 K/mm3 (1.5-8.0) 01/10/19 21:32 Neutrophils % 52.5 % (42.8-82.8) 01/10/19 21:32 Lymphocytes % 26.1 % (8-40) 01/10/19 21:32 Monocytes % 14.2 % (3.8-10.2) H 01/10/19 21:32 Eosinophils % 4.7 % (0-4.5) H 01/10/19 21:32 Basophils % 2.5 % (0-2.0) H 01/10/19 21:32 Nucleated RBC % 0 % (0-0) 01/10/19 21:32 No leukocytosis No anemia CMP Sodium 140 mmol/L (136-145) 01/10/19 21:32 Potassium 4.7 mmol/L (3.5-5.1) 01/10/19 21:32 Chloride 107 mmol/L (98-107) 01/10/19 21:32 Carbon Dioxide 30 mmol/L (21-32) 01/10/19 21:32 Anion Gap 4 MMOL/L (8-16) L 01/10/19 21:32 BUN 17.4 mg/dL (7-18) 01/10/19 21:32 Creatinine 1.0 mg/dL (0.55-1.3) 01/10/19 21:32 Est GFR (CKD-EPI)AfAm 93.73 01/10/19 21:32 Est GFR (CKD-EPI)NonAf 80.87 01/10/19 21:32 POC Glucometer 71 UNITS (80-120) 01/11/19 01:59 Random Glucose 184 mg/dL (74-106) H 01/10/19 21:32 Calcium 9.0 mg/dL (8.5-10.1) 01/10/19 21:32 Total Bilirubin 0.4 mg/dL (0.2-1) 01/10/19 21:32 AST 26 U/L (15-37) 01/10/19 21:32 ALT 61 U/L (13-61) 01/10/19 21:32 Alkaline Phosphatase 107 U/L (45-117) 01/10/19 21:32 B-Natriuretic Peptide 462.2 pg/ml (5-125) H 01/10/19 21:32 Total Protein 6.7 g/dl (6.4-8.2) 01/10/19 21:32 Albumin 3.9 g/dl (3.4-5.0) 01/10/19 21:32 Electrolytes unremarkable BNP elevated, 462 (previous value of 295 on 07/23/17) EKG, rate 57, QTc 410, bradycardic Duplex, as reported by Imaging extension professor: "EXAM: VENOUS DUPLEX BILATERAL No evidence for DVT bilateral lower extremities." Patient with BLE edema, negative for DVT, and without other signs of fluid overload- no shortness of breath, no dyspnea on exertion, CXR without acute pathology, breath sounds clear on lung exam To follow up with clinching machine operator Return precautions Discharged 01/11/19 04:08 Past History - Past Medical History Allergies/Adverse Reactions: Allergies Allergy/AdvReac Type Severity Reaction Status Date / Time No Known Drug Allergies Allergy Verified 01/11/19 02:18 Home Medications: Ambulatory Orders Amlodipine Besylate [Norvasc -] 5 mg PO DAILY 10/19/17 Atorvastatin Ca [Lipitor] 80 mg PO HS 10/19/17 Clopidogrel Bisulfate [Plavix] 75 mg PO DAILY 10/19/17 Ferrous Sulfate [Feosol] 325 mg PO DAILY 10/19/17 Furosemide [Lasix] 20 mg PO DAILY 10/19/17 Insulin Glargine,Hum.rec.anlog [Lantus] 28 unit SQ HS 10/19/17 Metoprolol Tartrate 75 mg PO BID 10/19/17 metFORMIN HCL [Metformin ER Osmotic] 500 mg PO BID 10/19/17 Anemia: No Asthma: No Cancer: No Cardiac Disorders: Yes (NM x 07/2017, Triple bypass 07/27/2017,CAD) CVA: No COPD: No CHF: No Dementia: No Diabetes: Yes GI Disorders: Yes Disorders: No HTN: Yes Hypercholesterolemia: Yes Liver Disease: No Seizures: No Thyroid Disease: No - Surgical History Abdominal Surgery: Yes ("TWISTED INTESTINES") Appendectomy: Yes Cardiac Surgery: Yes (3V CABG 08/02) Cholecystectomy: No Lung Surgery: No Neurologic Surgery: No Orthopedic Surgery: No - Immunization History Td Vaccination: Yes Immunization Up to Date: Yes - Psycho Social/Smoking Cessation Hx Smoking Status: No Smoking History: Never smoked Have you smoked in the past 12 months: No Number of Cigarettes Smoked Daily: 0 Cigars Per Day: 0 Hx Alcohol Use: Yes ("occasional") Drug/Substance Use Hx: No Substance Use Type: None Hx Substance Use Treatment: No *Physical Exam - Vital Signs Last Vital Signs Temp Pulse Resp BP Pulse Ox 97.8 F 63 20 124/67 97 01/10/19 21:20 01/10/19 21:20 01/10/19 21:20 01/10/19 21:20 01/10/19 21:20 ED Treatment Course - LABORATORY CBC & Chemistry Diagram: 01/10/19 21:32 01/10/19 21:32 - ADDITIONAL ORDERS Additional order review: Laboratory Results 01/10/19 21:32 Sodium 140 Potassium 4.7 Chloride 107 Carbon Dioxide 30 Anion Gap 4 L BUN 17.4 Creatinine 1.0 Est GFR (CKD-EPI)AfAm 93.73 Est GFR (CKD-EPI)NonAf 80.87 Random Glucose 184 H Calcium 9.0 Total Bilirubin 0.4 AST 26 ALT 61 Alkaline Phosphatase 107 B-Natriuretic Peptide 462.2 H Total Protein 6.7 Albumin 3.9 01/10/19 21:32 RBC 5.10 MCV 81.3 MCHC 32.1 RDW 14.8 MPV 8.3 Neutrophils % 52.5 Lymphocytes % 26.1 Monocytes % 14.2 H Eosinophils % 4.7 H Basophils % 2.5 H Discharge - Discharge Information Problems reviewed: Yes Clinical Impression/Diagnosis: Leg edema Condition: Stable Disposition: HOME - Follow up/Referral Referrals: Mookie Eli MD [Primary Care Provider] - - Patient Discharge Instructions Additional Instructions: You came into the emergency department with leg swelling. Lab work, Xray, and EKG did not indicate acute pathology. The ultrasound of your legs was negative for a blood clot. Continue taking home medications as prescribed by your physician. Follow up with your clinching machine operator within 72 hours. Call and make an appointment to further evaluate your leg swelling. Your workup is not complete until you do so. Immediate medical attention is required if you have: any chest pain, palpitations, shortness of breath, severe headaches, changes in vision, episodes of fainting, focal numbness or weakness, any severe abdominal pain, any black tarry stool, or any new or concerning symptoms. If you think you are having an emergency, call for emergency medical services or present to the emergency department right away. - Post Discharge Activity
--- NOTE | 2019-01-10 23:38 | PDOC ---
Attending Attestation - Resident Resident Name: Radha Skelton - ED Attending Attestation I have performed the following: I have examined & evaluated the patient, The case was reviewed & discussed with the resident, I agree w/resident's findings & plan - HPI HPI: 01/11/19 01:52 see resident hpi - Physicial Exam PE: 01/11/19 01:52 agree with resident exam - Medical Decision Making 63-year-old male with leg swelling and pain Lower extremity duplex within normal limits There is a mild elevation of patient's BNP There are no acute changes on patient's EKG We will DC with primary care outpatient follow-up
[2019-01-11 02:42] VITALS: BP 130/74; PULSE 76
--- NOTE | 2019-01-11 10:47 | EKG ---
Test Reason : Blood Pressure : / mmHG Vent. Rate : 057 BPM Atrial Rate : 057 BPM P-R Int : 144 ms QRS Dur : 094 ms QT Int : 422 ms P-R-T Axes : 031 033 048 degrees QTc Int : 410 ms SINUS BRADYCARDIA NONSPECIFIC T WAVE ABNORMALITY ABNORMAL ECG WHEN COMPARED WITH ECG OF 19-OCT-2017 18:17, NO SIGNIFICANT CHANGE WAS FOUND Confirmed by JASMYNE SAXENA MD ([id number]) on 01/11/2019 10:46:55 AM Referred By: Confirmed By:JASMYNE SAXENA MD
== END 2019-01-11 02:42 | disposition home or self-care (01) ==
LOC: JER 20:58
DX: R60.0 Localized edema (principal); I25.10 Atherosclerotic heart disease of native coronary artery without angina pectoris; I10 Essential (primary) hypertension; Z95.1 Presence of aortocoronary bypass graft; I25.2 Old myocardial infarction; E11.9 Type 2 diabetes mellitus without complications; Z79.4 Long term (current) use of insulin; E78.00 Pure hypercholesterolemia, unspecified; Z87.19 Personal history of other diseases of the digestive system; Z79.02 Long term (current) use of antithrombotics/antiplatelets; Z79.82 Long term (current) use of aspirin
CPT/HCPCS: 36415; 71045-TC-FY; 80053; 82962; 83880; 85025; 93005; 93010; 93970-TC; 99283-25